=== PATIENT | female | born 1970 | race Caucasian/White ===

== ENCOUNTER → 2021-11-18 | Day surgery (SDC) | payer BC ==
[~2021-11-18] MED LIST: Flumazenil 0.1 MG/ML 10 ML MDV ONE; Lactated Ringers 1,000 ML IV SCH; Midazolam 1 MG/ML 2 ML SDV ONE; Propofol 200 MG/20 ML SDV ONE; fentaNYL 50 MCG/ML SDV ONE
== END ==
LOC: CC.SDS 08:51
PROVIDERS: ATTEND Surgery
DX: Z12.11 Encounter for screening for malignant neoplasm of colon (principal); K57.30 Diverticulosis of large intestine without perforation or abscess without bleeding; G44.229 Chronic tension-type headache, not intractable; E78.5 Hyperlipidemia, unspecified; E03.9 Hypothyroidism, unspecified; Z98.890 Other specified postprocedural states; Z79.899 Other long term (current) drug therapy; Z79.890 Hormone replacement therapy
CPT/HCPCS: J2250; J2704; J3010

== ENCOUNTER 2022-06-06 20:26 | Emergency (ER) | payer BC ==
[2022-06-06] MEDS ORDERED: Sodium Chloride 0.9% 1,000 ML IV ONE (21:03)
[2022-06-06] MEDS ORDERED: Ondansetron 4 MG/2 ML SDV IVPUSH ONE (21:03)
[2022-06-06] MEDS ORDERED: Hyoscyamine 0.125 MG Tab.SL SL ONE (21:56)
[2022-06-06] MEDS ORDERED: Take Home: Ondansetron 4 MG Tab.DIS, 2 Tab Pack PO ONE (21:57)
== END 2022-06-06 22:17 | disposition home or self-care (01) ==
LOC: CC.ED 20:26
DX: K52.9 Noninfective gastroenteritis and colitis, unspecified (principal)
CPT/HCPCS: 36415; 74019; 80053; 81001; 82150; 83690; 85025; 87086; 96361; 96374; 99284; 99284-25; A9270-GY; J2405; J7030